=== PATIENT | male | born 1960 | race Caucasian/White ===

== ENCOUNTER 2019-03-15 13:18 | Emergency (ER) | payer OTHER ==
--- NOTE | 2019-03-15 13:38 | EDPHY ---
General Time Seen by Provider: 03/15/19 13:36 Narrative: CLINICAL IMPRESSION: Left thumb skin avulsion, left pointer finger crush injury with laceration and distal tuft fracture ASSESSMENT/PLAN: Patient is a 58-year-old male with no significant medical history who presents to the emergency department with complaints of a crush injury and laceration sustained to his left pointer finger and thumb. Patient is not toxic appearing , he is in no distress. Physical examination reveals 5 cm laceration along the radial aspect of the left index finger extending under the end of the nail, 2 smaller lacerations on the 2nd distal phalanx pad as well as a abrasion to the medial aspect of the left thumb. An x-ray was obtained which revealed a mildly comminuted, displaced fracture of the terminal tuft of the left 2nd distal phalanx. This was an open fracture, the patient was given for Keflex in the emergency department and will continue for the next 7 days. His tetanus status is already up-to-date. The wound was copiously irrigated and repaired as discussed in the procedure note. There was no evidence of obvious tendinous injury, germinal matrix involvement, vascular compromise or compartment syndrome. Referral given for hand specialist, the patient will call tomorrow to schedule follow-up to be seen in the next several days. Return precautions discussed. ED PROCEDURES: Laceration Repair Verbal consent obtained by patient. Risks discussed, including but not limited to infection, pain, retained foreign body, need for additional repair, poor cosmetic result, tendon damage, nerve damage, poor wound healing, vascular damage. Alternatives to repair discussed. [place] protocol used to establish correct patient, procedure, equipment and site. Anesthesia obtained by digital block and local infiltration. The pointer finger was anesthetized with a digital block using bupivacaine and 1% lidocaine , the skin avulsion on the thumb was anesthetized with 1% lidocaine with epinephrine. Laceration location radial aspect of left index finger, length 5 cm, Repair type simple. Two additional lacerations both 3 mm in length noted to the pad of the index finger. Patient was prepped and draped in usual sterile fashion. Hemostasis achieved with direct pressure. Wound explored through full range of motion and entire depth of wound probed and visualized with gloved finger. No suspicion for vascular damage, foreign body, or contamination. Area was cleansed with [place] and irrigated with sterile saline as per protocol. No foreign body or material removed. Repair method 5.0 Prolene. 7 sutures placed up until the nail fold. The nail was secured at the tip with a 4.0 nylon. The 2 additional lacerations on the pad of the index finger with closed with a single 5.0 Prolene interrupted suture; 2 additional sutures. Well aligned, closely approximated. wound was dressed with antibiotic ointment, sterile dressing and splint. Patient tolerated well with no immediate complications. Wound care: Clean and dry x 24 hours, gently clean with soap and water, cover with topical antibiotic ointment/bandage. Suture/Staple removal: 10-14 Days Procedure: Splint placement. An [place] splint was applied to the index finger. After application of the splint I returned and re-examined the patient. The splint was adequately immobilizing the joint and distal to the splint the patient's circulation was intact, sensation unchanged. ED course: 1417: X-ray reveals a mildly comminuted and displaced fracture of the terminal tuft distal phalanx 2nd finger. Case discussed with Dr. Valles, he will also evaluate this patient. CHIEF COMPLAINT: Laceration HPI: Patient is a 58-year-old male with no significant medical history who presents to the emergency department after he had his left pointer and thumb finger crushed by a Sheri that his car was loaded on. Patient reports just prior to arrival his car was on a [place]ser[place] as he was changing the oil, the piece of wood under the Sheri broke causing the sheri to slam down onto his pointer finger and thumb. He immediately experienced significant pain and noticed laceration. Patient placed finger on ice, he denies any numbness or tingling of the digits. It did not land on any other portion of his hand. He is right-hand dominant, he is up-to-date on his tetanus status. He denies any other injury or complaint. REVIEW OF SYSTEMS: All other systems negative, please see HPI. PHYSICAL EXAM: General Appearance: Alert, oriented, appropriate for age, cooperative, NAD, well hydrated, non-toxic appearing, VSS, no hypoxia. Neurological: Alert and oriented x 3. Cranial nerves 2-12 grossly intact. Skin: Warm, dry. See below. Upper Extremities: Left thumb reveals a 2 cm avulsion on the ulnar/medial aspect of the left thumb. This is mostly superficial, there is a very small amount of fat exposed on the most dorsal aspect. Patient with full range of motion of his thumb, full strength at the interphalangeal joint. Two point discrimination is intact distally. Left index finger reveals a 5 cm laceration along the radial aspect involving the middle and distal phalanx, laceration extends through the tip of the finger under the nail. There to additional 3 mm separate lacerations noted to the pad of the index finger. Patient is able to move finger without difficulty, patient is able to flex and extend at the distal interphalangeal joint. Patient has sensation intact up to the very distal tip, mildly diminished. Germinal matrix is intact. Right upper extremity is unremarkable- Intact distal pulses, Full range of motion intact, no tenderness, no ecchymosis or edema. Lower Extremities: Intact distal pulses, No edema, No tenderness, No cyanosis, full range of motion intact, No calf tenderness bilaterally. MEDICAL DECISION MAKING: Patient was seen by myself and Dr. Valles. Diagnosis: Right pointer finger crush injury, tuft fracture, pointer finger laceration and thumb skin avulsion. Summary: See assessment and plan for summary of ED visit Clinical lab tests: Not applicable. Independent visualization of images, tracing, or specimens: yes. Decision to obtain medical records or history from someone other than the patient: No Review / Summarize previous medical records: Yes Disposition: Stable, discharge - History Smoking Status: Never smoked - Objective Vital Signs: Initial Vital Signs Temperature (C) 36.9 C 03/15/19 13:28 Heart Rate 55 L 03/15/19 13:28 Respiratory Rate 18 03/15/19 13:28 Blood Pressure 97/62 L 03/15/19 13:28 O2 Sat (%) 93 03/15/19 13:28 O2 Delivery Mode Room Air Allergies/Adverse Reactions: No Known Allergies Allergy (Verified 03/15/19 13:30) Home Medications: Medication Instructions Recorded Apixaban [Eliquis] 5 mg PO BID 05/23/16 Ascorbic Acid [Vitamin C 500 mg 500 mg PO DAILY 05/23/16 (*)] Ibuprofen [Motrin (*)] 200 mg PO PRN PRN 05/23/16 Multivitamins [Multivitamin (*)] 1 each PO DAILY 05/23/16 Cephalexin [Keflex (*)] 500 mg PO Q6H #28 cap 03/15/19 Medications Given: Discontinued Medications Cephalexin HCl (Keflex) 500 mg PO EDNOW ONE PRN Reason: Protocol Stop: 03/15/19 14:20 Last Admin: 03/15/19 14:32 Dose: 500 mg Departure - Departure Disposition: Home, Routine, Self-Care Clinical Impression: Finger fracture, left Condition: Good Instructions: Finger Laceration (ED) Additional Instructions: DISCHARGE INSTRUCTIONS FROM YOUR PROVIDER Thank you for visiting our emergency department today. Please call Orthopedic surgery tomorrow morning to schedule appointment for repeat follow-up. Keep wound clean and dry for 24 hours. Then remove dressing, clean at least twice daily or when soiled with soap and water, apply antibiotic ointment and dressing. Do not soak the wound while the stitches are in place. Elevate hand as much as possible for the next 24 hours to decrease the swelling and pain. Wear the splint until follow-up with Orthopedic surgery.. Anticipate suture removal in 10-14 days. Tylenol every 4-6 hours as directed as needed for pain. Do not exceed 4000 mg in 24 hours. Ibuprofen as directed every 6-8 hours with food as needed for pain. Stop for stomach upset. Do not exceed 2400 mg in 24 hours. Continue your regular medications as prescribed. As discussed the laceration was not deep enough to visualize the tendon today. It is unlikely a tendon injury is present and your tendon function is currently intact. However, if at any time, you feel a pop and have difficulty bending or straightening the finger, you should seek re-evaluation from a hand specialist urgently. Return for signs of wound infection ie: redness, swelling, drainage, foul odor, red streaks, fever, chills, pain, bleeding, if the stitches pop, if the wound opens, for numbness, tingling, weakness, discoloration of the finger, coolness of the finger, inability to move or bend the finger or for any other new, worsening or worrisome symptoms. People present with illnesses and injuries in different ways, and it is always possible that we have missed something. Again, thank you for choosing our emergency department. We hope that you feel better. Referrals: NONE *PRIMARY CARE P,. [Unknown] - As per Instructions Lon Walton MD [Medical Doctor] - 2-3 days, call for appt. Prescriptions: Cephalexin [Keflex (*)] 500 mg PO Q6H #28 cap
[2019-03-15] MEDS ORDERED: CEPHALEXIN 500 MG CAP PO ONE (14:19)
[2019-03-15 15:34] VITALS: BP 127/82
== END 2019-03-15 15:40 | disposition home or self-care (01) ==
PROC: 0HQGXZZ Repair Left Hand Skin, External Approach (ICD-10-PCS; principal; 2019-03-15)
DX: S62.631A Displaced fracture of distal phalanx of left index finger, initial encounter for closed fracture (principal); S61.211A Laceration without foreign body of left index finger without damage to nail, initial encounter; S61.002A Unspecified open wound of left thumb without damage to nail, initial encounter; W23.1XXA Caught, crushed, jammed, or pinched between stationary objects, initial encounter; Y93.89 Activity, other specified